=== PATIENT | male | born 2000 | race Hispanic/Latino ===

== ENCOUNTER 2023-10-20 18:12 | Emergency (ER) | payer SELFPAY ==
[2023-10-20] MEDS ORDERED: KETOROLAC 30 MG/ML INJ ONE (18:36)
--- NOTE | 2023-10-20 19:54 | RAD REPORT ---
EXAM DESCRIPTION: RAD - Foot Left 3 View - 10/20/2023 7:46 pm CLINICAL HISTORY: Left Foot pain FINDINGS: No fracture or dislocation is seen.
--- NOTE | 2023-10-20 19:59 | EDPHYS ---
Physician Documentation [facility] Name: Ruben Giraldo Age: 22 yrs Sex: Male : 2000 Arrival Date: 10/20/2023 Time: 18:12 Bed 9 Private MD: ED Physician Lloyd Han HPI: 10/19 19:55 This 22 yrs old Male presents to ER via Wheelchair with complaints of Foot kb Pain. 19:55 Pt is a 22 year old male who presents for left foot pain and swelling that started this kb morning. Denies injury or trauma. States he has a history of gout but this feels different and is to the top of his foot, not a joint. Denies redness, fever. Historical: - Allergies: 18:29 No Known Allergies; ap3 - PMHx: 18:29 Gout; ap3 - Immunization history:: Client reports receiving the 2nd dose of the Covid vaccine. - Infectious Disease History:: Denies. - Social history:: Smoking status: Patient reports the use of cigarette tobacco products, denies chronic smoking, but will smoke occasionally. ROS: 19:55 Constitutional: As per HPI kb Exam: 19:55 Constitutional: This is a well developed, well nourished patient who is awake, alert, kb and in no acute distress. Head/Face: Normocephalic, atraumatic. ENT: Moist Mucous membranes Cardiovascular: Regular rate Respiratory: Respirations even and unlabored. No increased work of breathing. Talking in full sentences Skin: Warm, dry with normal turgor. Normal color. Neuro: Awake and alert, GCS 15, oriented to person, place, time, and situation. Moves all extremities. Normal gait. 19:55 Musculoskeletal/extremity: Extremities: grossly normal except: noted in the lateral side of left foot and dorsum of left foot: pain, swelling, tenderness, ROM: intact in all extremities, Circulation is intact in all extremities. Sensation intact. Weight bearing: can bear weight with assistance only, Vital Signs: 18:28 BP 121 / 51; Pulse 74; Resp 18; Temp 98; Pulse Ox 98% ; Weight 124.74 kg; Height 6 ft. ap3 2 in. ; Pain 9/10; 20:19 BP 122 / 78; Pulse 75; Resp 19; Temp 98.4; Pulse Ox 99% on R/A; Pain 3/10; tm6 18:28 Body Mass Index 35.31 (124.74 kg, 187.96 cm) ap3 18:28 Pain Scale: Adult ap3 20:19 Pain Scale: Adult tm6 MDM: 18:21 Patient medically screened. kb 19:57 Differential diagnosis: closed fracture, strain, sprain. Data reviewed: vital signs, kb nurses notes. Counseling: I had a detailed discussion with the patient and/or guardian regarding the historical points, exam findings, and any diagnostic results supporting the discharge/admit diagnosis, radiology results, the need for outpatient follow up, a family practitioner, to return to the emergency department if symptoms worsen or persist or if there are any questions or concerns that arise at home. 10/19 18:29 Order name: Foot Left 3 View XRAY; Complete Time: 19:55 kb Administered Medications: 18:42 Drug: Ketorolac IM 30 mg IM once Route: IM; Site: left deltoid; ap3 Disposition Summary: 10/20/23 19:58 Discharge Ordered Notes: Location: Home kb Condition: Stable kb Diagnosis - Pain in left foot kb Followup: kb - With: Emergency Department - When: As needed - Reason: Worsening of condition Followup: kb - With: Private Physician - When: 2 - 3 days - Reason: Recheck today's complaints, Continuance of care, Re-evaluation by your physician Discharge Instructions: - Discharge Summary Sheet kb - Musculoskeletal Pain kb - Foot Pain kb Forms: - Medication Reconciliation Form kb - Antibiotic Education kb - Prescription Opioid Use kb - Patient Portal Instructions kb - Leadership Thank You Letter kb Prescriptions: - Diclofenac Sodium 75 mg Oral tablet, delayed release (enteric coated) - take 1 tablet ORAL route 2 times per day As needed; 30 tablet; Refills: 0, kb Product Selection Permitted Signatures: Dispatcher [employer] Lisy Dubois, Manda Null RN RN ap3
--- NOTE | 2023-10-20 19:59 | ER ---
Nurse's Notes [facility] Name: Ruben Giraldo Age: 22 yrs Sex: Male : 2000 Arrival Date: 10/20/2023 Time: 18:12 Bed 9 Private MD: Diagnosis: Pain in left foot Presentation: 10/19 18:28 Chief complaint: Patient states: he woke up this morning with left lateral foot pain. ap3 patient currently rates his pain as as 9/10 on the pain scale. Coronavirus screen: At this time, the client does not indicate any symptoms associated with coronavirus-19. Ebola Screen: No symptoms or risks identified at this time. Initial Sepsis Screen: Does the patient meet any 2 criteria? No. Patient's initial sepsis screen is negative. Does the patient have a suspected source of infection? No. Patient's initial sepsis screen is negative. Risk Assessment: Do you want to hurt yourself or someone else? Patient reports no desire to harm self or others. Onset of symptoms was October 20, 2023. 18:28 Method Of Arrival: Wheelchair ap3 18:28 Acuity: ILA 4 ap3 Triage Assessment: 18:30 General: Appears uncomfortable, Behavior is calm, cooperative, appropriate for age. ap3 Pain: Complains of pain in lateral side of left foot Pain currently is 9 out of 10 on a pain scale. Pain began this morning. Neuro: Level of Consciousness is awake, alert, obeys commands, Oriented to person, place, time, situation, Appropriate for age. Cardiovascular: Patient's skin is warm and dry. Respiratory: Airway is patent Respiratory effort is even, unlabored, Respiratory pattern is regular, symmetrical. Historical: - Allergies: 18:29 No Known Allergies; ap3 - PMHx: 18:29 Gout; ap3 - Immunization history:: Client reports receiving the 2nd dose of the Covid vaccine. - Infectious Disease History:: Denies. - Social history:: Smoking status: Patient reports the use of cigarette tobacco products, denies chronic smoking, but will smoke occasionally. Screenin:30 Abuse screen: Denies threats or abuse. Nutritional screening: No deficits noted. ap3 Tuberculosis screening: No symptoms or risk factors identified. 20:19 [facility] ED Fall Risk Assessment (Adult) History of falling in the last 3 months, tm6 including since admission No falls in past 3 months (0 pts) Confusion or Disorientation No (0 pts) Intoxicated or Sedated No (0 pts) Impaired Gait No (0 pts) Mobility Assist Device Used No (0 pt) Altered Elimination No (0 pt) Score/Fall Risk Level 0 - 2 = Low Risk Oriented to surroundings, Maintained a safe environment. Assessment: 20:19 General: Appears in no apparent distress. Behavior is calm, cooperative. Pain: tm6 Complains of pain in left foot Pain currently is 3 out of 10 on a pain scale. Neuro: Level of Consciousness is awake, alert, obeys commands, Oriented to person, place, time, situation, Bobbin Winder Tender are. Cardiovascular: No deficits noted. Patient's skin is warm and dry. Respiratory: Airway is patent Respiratory effort is even, unlabored, Respiratory pattern is regular, symmetrical. GI: No signs and/or symptoms were reported involving the gastrointestinal system. : No signs and/or symptoms were reported regarding the genitourinary system. EENT: Derm: No signs and/or symptoms reported regarding the dermatologic system. Musculoskeletal: Reports pain in left foot Pain is 4 out of 10 on a pain scale. Vital Signs: 18:28 BP 121 / 51; Pulse 74; Resp 18; Temp 98; Pulse Ox 98% ; Weight 124.74 kg; Height 6 ft. ap3 2 in. ; Pain 9/10; 20:19 BP 122 / 78; Pulse 75; Resp 19; Temp 98.4; Pulse Ox 99% on R/A; Pain 3/10; tm6 18:28 Body Mass Index 35.31 (124.74 kg, 187.96 cm) ap3 18:28 Pain Scale: Adult ap3 20:19 Pain Scale: Adult tm6 ED Course: 18:18 Patient arrived in ED. im 18:21 Lisy Quinn FNP-C is PHCP. kb 18:21 Lloyd Han MD is Attending Physician. kb 18:29 Triage completed. ap3 18:31 Arm band placed on right wrist. ap3 18:31 Patient has correct armband on for positive identification. Bed in low position. Call ap3 light in reach. Side rails up X 1. Pulse ox on. NIBP on. 18:31 Provided Education on: call light use. ap3 19:17 Manda Shepard, RN is Primary Nurse. ap3 19:17 Report given to KASANDRA Neal. ap3 19:45 Foot Left 3 View XRAY In Process Unspecified. EDMS 20:19 No provider procedures requiring assistance completed. Patient did not have IV access tm6 during this emergency room visit. Administered Medications: 18:42 Drug: Ketorolac IM 30 mg IM once Route: IM; Site: left deltoid; ap3 Medication: 18:31 VIS not applicable for this client. ap3 Outcome: 19:58 Discharge ordered by . hilary 20:19 Discharged to home via wheelchair, tm6 20:19 Condition: stable 20:19 Discharge instructions given to patient, Instructed on discharge instructions, follow up and referral plans. medication usage, Demonstrated understanding of instructions, follow-up care, medications, Prescriptions given X 1, 20:22 Patient left the ED. tm6 Signatures: Dispatcher [employer] EDMS Lisy Quinn, REMBERTO POLK-Manda Tejada RN RN ap3 Diana España Tawney, RN RN tm6
[2023-10-20 20:52] VITALS: BP 122/78; TEMP 98.4; O2SAT 99
== END 2023-10-20 20:22 | disposition home or self-care (01) ==
LOC: ER 18:12
DX: M79.672 Pain in left foot (principal)

== ENCOUNTER 2023-11-04 00:54 | Emergency (ER) | payer SELFPAY, OTHER ==
--- OUTSIDE RECORDS SUMMARY | 2023-11-04 00:57 | XMS REPORT | Continuity of Care Document ---
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 Date/Time/By: 06/21/2022 (0009) :KeelyTH15 Orig Print D/T:S: 06/21/2022 (0012) Automated exposure control, iterative reconstruction technique, and/oradjustment of mA and/or kV according to patient's size was utilizedfor optimum radiation dose reduction. PAGE 1 Signed Report Notes Date/Time Note Provider Source 2023-07-13 14:24:00 [id number]/[id number]M85:24:00 [facility] PROVIDER REPORTREPORT#:[id number] REPORT STATUS: SignedDATE:07/13/23 TIME: 1423 PATIENT: SURINDER WEEKS UNIT #: [id number]#: [id number] ROOM/BED:AGE: 22 SEX: M PCP PHYS: No Primary or Family PhysicianSERVICE AUTHOR: Kanchan Marshall RN PHYSICIAN OFFICE * ALL edits or amendments must be made on the electronic/computer document * Kanchan Marshall 07/13/23 1424:XTU-Xdb-[facility] Illness Free Text HPI NotesFree Text HPI NotesWell-appearing alert orientated male greeted in ER lobby with spouse is being seen for same symptoms. Patient complains of cough congestion sinus pressure fever chills headache and sweating. Patient states symptoms all started midmorning today approximately 6 hours ago. Patient's spouse has been sick since yesterday. GeneralConfirmed Patient YesPatient Type New patientInitial Greet Date/Time 07/13/23 1409 PresentationChief Complaint Body aches, Chills, Cough, Fatigue, Fever, Nasal congestion, Upper resp infectionHx Obtained From PatientOnset Occurred Sudden, TodayContext of Onset Known contact, family Review of Systems ROS StatementsAll systems rev neg except as marked. Focused Review of SystemsConstitutionalReports: Chills, Fatigue, Fever, Malaise. Ears/Nose/ThroatReports: Nasal congestion, Sinus problem. RespiratoryReports: Cough, non-productive. GIReports: Nausea. MusculoskeletalReports: Myalgia. NeurologicReports: Headache. Past Medical History - AdultStated Complaint RNERWE-SSEZVTN-SUKVF-COUGHAllergiesCoded Allergies:No Known Allergies (07/13/23) Review of Nursing Notes Triage notes reviewedSmoking status for patients 13 years old or older: Current every day smoker Physical Exam Vital SignsReview of Vital Signs Reviewed Basic Physical ExamBasic PE HEAD: Atraumatic/NC, EYES: PERRL, conj clear, ENT: Membranes moist, ABD: Soft/non-tender, EXT: No gross abnormality, PSYCH: NL thought content Focused PEGeneral/Const General/Const Awake, Alert, No acute distress, Cooperative, Not toxic appearing Appearance/Presentation Ill appearing/not toxic. MS Neck Neck Supple, No meningismus, Full range of motion, No adenopathyResp/Chest Respiratory/Chest Breath sounds NL, Breath sounds = bilat, No respiratory distressCardiovascular Cardiovascular Regular rhythm, Cap refill not delayed, Peripheral circulationNL Heart Rate/Rhythm Tachycardia. Skin Skin Warm, DryNeurologic Neurologic Oriented X3, Speech NL, Cerebellar NL, Memory NL, Gait NL Interpretation Diagnostics Lab Results Interpretation Lab StatementLaboratory studies reviewed and considered in the medical decision-making. Patient Discharge Departure Vital Signs/ConditionVital SignsFirst Documented: Result Date Time Pulse Ox 96 07/13 1413 B/P 137/82 / 1413 B/P Mean 100 / 1413 O2 Delivery Room air 07/13 1413 Temp 38.2 02 1413 Pulse 116 02/ 1413 Resp 18 02/ 1413 Last Documented: Result Date Time Pulse Ox 96 / 1413 B/P 137/82 02/ 1413 B/P Mean 100 / 1413 O2 Delivery Room air 07/13 1413 Temp 38.2 02/ 1413 Pulse 116 02/ 1413 Resp 18 / 1413 All vital signs available at the time of this entry have been reviewed. Condition Stable Clinical ImpressionClinical ImpressionPrimary Impression: COVID-19 Disposition DecisionDischarge )( Discharged to Home Yes )( Time 1453 )( Date 07/13/23 Discharge/Care PlanCounseled Regarding Diagnosis, Lab results, Prescriptions, Need for follow-up, When to return to ED(Auto) PrescriptionsCurrent Visit ScriptsALBUTEROL (PROVENTIL HFA 90 MCG/ACT 6.7 GM) 2 PUFF INH RTQ4H PRN PRN COUGH/WHEEZE/SOB ALBUTEROL (PROVENTIL HFA 90 MCG/ACT 6.7 GM) 2 PUFF INH RTQ4H PRN PRN COUGH/WHEEZE/SOB #6.7 GM FLUTICASONE PROPIONATE (FLONASE 50 MCG/ACT NASAL) 2 SPRAY NASAL DAILY FLUTICASONE PROPIONATE (FLONASE 50 MCG/ACT NASAL) 2 SPRAY NASAL DAILY #16 GM guaiFENesin ER (MUCINEX) 1,200 MG PO Q12H guaiFENesin ER (MUCINEX) 1,200 MG PO Q12H #20 TABS TAKE EARLY AM AND EARLY AFTERNOON DME - SPACER (SPACER) EACH MISC ASDIR DME - SPACER (SPACER) EACH [facility] Spacer of choice Prescriptions Reviewed Risks, Benefits, Alternative treatmentPatient Instructions COVID-19 Aftercare, COVID-19 Home Care, COVID-19: How to Clean Your Hands - Video, V-Symptoms of COVID-19 InfectionAdditional InstructionsYour oxygen levels are normal, you are not struggling to breathe, your lungs areclear on exam. There are no emergent findings based off today's visit. If positive please quarantine for the full 5 days and for 24 hours after fever. You may return to work after being fever free for 24 hours without medication. Rest, stay well-hydrated, wash your hands frequently and stay away from others who may be susceptible to the virus. Use Tylenol as indicated to control fever and body aches. You may take tjhw-qcw-nkeuiyz magnesium, vitamin C, zinc, and or melatonin as indicated to help with symptoms as well.Flonase is an intranasal steroid that works to help relieve inflammation and irritation of the nasal cavity and promote drainage and allow the congestion to leave your head will also help with sore throat and inflammation in the upper airway as well.Sinus pressure can help be relieved by eyedrops such as Opcon-A, use of [place] Conrad or warm compresses to the face, and blowing her nose when congested. It is most important that you do not just lay in bed, make sure that you are getting up and walking for at least 15 minutes every 1-2 hours. When sleeping try to lay on your stomach rather than your back. Make sure you are drinking plenty of water! Take medications as prescribed.Take every day precautions to protect others while sick: Limit contact with others as much as possible to keep from infecting them. Cover your nose and mouth with a tissue when you cough or sneeze. Throw the tissue in the trash after you use it.Wash your hands with soap and water often. If soap and water are not available use an alcohol-based hand export sales assistant.Clean and disinfect surfaces and objects that may be contaminated with germs.Stay home until you are better. The CDC currently recommends quarantine for 5 days from the first day of symptoms and 24 hours fever-free before you return to work.Departure FormsWORK/SCHOOL EXCUSE VARIABLE Discharge NoteI have spoken with the patient and/or caregivers. I have explained the patient'scondition, diagnoses and treatment plan based on the information available to meat this time. I have answered the patient's and/or caregiver's questions and addressed any concerns. The patient and/or caregivers have as good an understanding of the patient's diagnosis, condition and treatment plan as can beexpected at this point. The vital signs have been stable. The patient's condition is stable and appropriate for discharge from the emergency department. The patient will pursue further outpatient evaluation with the primary care physician or other designated or consulting physician as outlined in the discharge instructions. The patient and/or caregivers are agreeable to this planof care and follow-up instructions have been explained in detail. The patient and/or caregivers have received these instructions in written format and have expressed an understanding of the discharge instructions. The patient and/or caregivers are aware that any significant change in condition or worsening of symptoms should prompt an immediate return to this or the closest emergency department or a call to 911. Dannielle Win 07/13/23 1450:Physical Exam Vital SignsVital SignsFirst Documented: Result Date Time Pulse Ox 96 07/13 1413 B/P 137/82 07/13 1413 B/P Mean 100 07/13 1413 O2 Delivery Room air 07/13 141 Temp 100.7 07/13 1413 Pulse 116 07/13 1413 Resp 18 07/13 1413 Last Documented: Result Date Time Pulse Ox 96 07/13 1413 B/P 137/82 07/13 1413 B/P Mean 100 07/13 1413 O2 Delivery Room air 07/13 1413 Temp 100.7 07/13 1413 Pulse 116 07/13 1413 Resp 18 07/13 1413 Interpretation Diagnostics Lab Results InterpretationResultsLaboratory Tests: 07/13 142 Serology SARS-CoV-2 Ag (Rapid) (Negative) POSITIVE A Microbiology: Date/Time Procedure - Status Source Growth 07/13 142 Group A Streptococcus Screen (BRIGITTE) - RES THROAT 07/13 142 Throat Culture - RES THROAT 07/13 142 Influenza Virus Type B Antigen - COMP NASOPHARG 07/13 142 Influenza Virus Type A Antigen - COMP NASOPHARG 07/13 141 Blood Culture - CAN BLOOD Cancelled: Cancelled via OE: Physician Decision 07/13 141 Blood Culture - CAN BLOOD Cancelled: Cancelled via OE: Physician Decision Re-Evaluation [facility] ED CourseMedication(s) OrderedMedication(s) Ordered:Electrolytic, Caloric, And Tacos Sig/Elise Start time Last Medication Dose Route Stop Time Status Admin Sodium Chloride 1,000 ML X1ED STA 07/13 1415 CAN IV 07/13 1514 Gastrointestinal Drugs Sig/Elise Start time Last Medication Dose Route Stop Time Status Admin Ondansetron Base 4 MG X1ED STA 07/13 1421 DC 07/13 SL 07/13 1422 1424 Patient Discharge Departure Supervising Physician Note MidLv Saw Pt AloneI have reviewed the PA/RN PHYSICIAN OFFICE's note and plan of care. I was available for consultation as needed at all times during the patient's visit in the emergency department. at 1750 at 0816RPT #:[id number] OF REPORTEDEmergency department mopjlm0209-19-62Y94:24:00D.[id number] ilable for patient qkijQOBCQUREQOQIDG7999-60-97M96:51:16 [facility] 2023-06-10 15:40:00 [id number]+6VeObKQDVxWtDBr kcw6DR+3DSO1U/gDuNOAZgYee3C2766-05-43D97:40:00 [facility] PROVIDER REPORTREPORT#:[id number] REPORT STATUS: SignedDATE:06/10/23 TIME: 1540 PATIENT: SURINDER WEEKS UNIT #: [id number]#: [id number] ROOM/BED:AGE: 22 SEX: M PCP PHYS: Elsie Spence MDSERVICE AUTHOR: Marco Navarrete RN PHYSICIAN OFFICE * ALL edits or amendments must be made on the electronic/computer document * See AddendumMarco Navarrete 06/10/23 1540:HPI-Foot Prob/Inj Free Text HPI NotesFree Text HPI NotesPatient complaining of pain to middle arch of left foot for 2 days. States may have started when he stepped on a bar with the middle of his foot. Pain worse when walking or stretching foot. No acute trauma. GeneralConfirmed Patient YesInitial Greet Date/Time 06/10/23 1538 PresentationChief Complaint Foot pain LLocation: Left Foot Plantar surfacePain/Sev: Current Pain level 5 out of 10 Review of Systems Free Text ROS NotesFree Text ROS NotesCONSTITUTIONAL: No fever, fatigue or weight loss.SKIN: No rash.HENT: No congestion, ear pain, or sore throat.EYES: No recent vision problems or eye pain.CARDIOVASCULAR: No chest pain or edema.RESPIRATORY: No cough, shortness of breath, or wheezing.GASTROINTESTINAL: No abdominal pain, nausea, vomiting, bloody stools or diarrhea.GENITOURINARY: No dysuria.MUSCULOSKELETAL: Left foot painNEUROLOGIC: No seizures. No headache, focal weakness or sensory changes.HEMATOLOGIC: No unusual bruising or bleeding.PSYCHIATRIC: No depression or anxiety. Past Medical History - AdultStated Complaint FOOT PAINAllergiesCoded Allergies:No Known Allergies (06/10/23) Physical Exam Vital SignsVital SignsFirst Documented: Result Date Time Pulse Ox 97 06/10 1537 B/P 150/87 06/10 1537 B/P Mean 108 06/10 1537 O2 Delivery Room air 06/10 1537 Temp 36.4 06/10 1537 Pulse 97 06/10 1537 Resp 16 06/10 1537 Last Documented: Result Date Time Pulse Ox 97 06/10 1537 B/P 150/87 06/10 1537 B/P Mean 108 06/10 1537 O2 Delivery Room air 06/10 1537 Temp 36.4 06/10 1537 Pulse 97 06/10 1537 Resp 16 06/10 153 Review of Vital Signs Reviewed Basic Physical ExamBasic PE GEN: Well appearing/NAD, HEAD: Atraumatic/NC, EYES: PERRL, conj clear, ENT: Membranes moist, NECK: Supple, RESP: No resp distress, CV: Reg rate rhythm, ABD: Soft/non-tender, UP EXT: No gross abnormal, SKIN: No rashes, warm/dry, NEURO: alert oriented, NEURO: gross movement NL, PSYCH: NL thought content Focused PEMS Ankle/Foot Ankle/Foot Atraumatic, Inspection NL, Full range of motion, No swelling, No erythema Left Ankle Tenderness present (PLANTAR FASCIA). Re-Evaluation MDM Free Text MDM NotesFree Text MDM NotesPatient presents with relatively straightforward plantar fasciitis. Will treat with ibuprofen for inflammation and pain relief. Discussed need for stretching exercises and follow-up with case liner if symptoms do not resolve. Directed toreturn to the emergency room for new or worsening symptoms. Patient Discharge Departure Vital Signs/ConditionVital SignsFirst Documented: Result Date Time Pulse Ox 97 06/10 1537 B/P 150/87 06/10 1537 B/P Mean 108 06/10 1537 O2 Delivery Room air 06/10 1537 Temp 36.4 06/10 153 Pulse 97 06/10 1537 Resp 16 06/10 1537 Last Documented: Result Date Time Pulse Ox 97 06/10 1537 B/P 150/87 06/10 1537 B/P Mean 108 06/10 1537 O2 Delivery Room air 06/10 1537 Temp 36.4 06/10 1537 Pulse 97 06/10 1537 Resp 16 06/10 1537 All vital signs available at the time of this entry have been reviewed. Condition Stable Clinical ImpressionClinical ImpressionPrimary Impression: Plantar fasciitis Disposition DecisionDischarge )( Discharged to Home Yes )( Time 1544 )( Date 06/10/23 Discharge/Care PlanCounseled Regarding Diagnosis, Prescriptions, Need for follow-up, When to returnto ED(Auto) PrescriptionsCurrent Visit ScriptsIBUPROFEN (MOTRIN) 800 MG PO TID IBUPROFEN (MOTRIN) 800 MG PO TID #30 TABS Prescriptions Reviewed Risks, Benefits, Alternative treatmentPatient Instructions ED Plantar Fasciitis Discharge NoteI have spoken with the patient and/or caregivers. I have explained the patient'scondition, diagnoses and treatment plan based on the information available to meat this time. I have answered the patient's and/or caregiver's questions and addressed any concerns. The patient and/or caregivers have as good an understanding of the patient's diagnosis, condition and treatment plan as can beexpected at this point. The vital signs have been stable. The patient's condition is stable and appropriate for discharge from the emergency department. The patient will pursue further outpatient evaluation with the primary care physician or other designated or consulting physician as outlined in the discharge instructions. The patient and/or caregivers are agreeable to this planof care and follow-up instructions have been explained in detail. The patient and/or caregivers have received these instructions in written format and have expressed an understanding of the discharge instructions. The patient and/or caregivers are aware that any significant change in condition or worsening of symptoms should prompt an immediate return to this or the closest emergency department or a call to 911. Robbie García 06/15/23 1242:Patient Discharge Departure Supervising Physician Note MidLv Saw Pt AlonePatient was seen, evalauted, +/- treated in the ED, and disposed by LELO independently. I was present and available for consultation during the entire stay of patient in this ED. I was not consulted on this particular patient. at 1545 at 1244 Addendum 1: 06/10/23 154 by Marco Navarrete NP Provider Time Updates Greet Date/TimeDate/Time Seen by Provider 06/10/23 1538 DispositionDischarge )( Discharged to Home Yes )( Time 1547 )( Date 06/10/23 at 1547 at 1244RPT #:[id number] OF REPORTEDEmergency department tyebzv3070-00-51U57:40:00D.[id number] ilable for patient rkysZAEPHPSJVANSNC9602-57-33Y65:45:57 [facility] 2022-08-08 08:03:00 [id number]/ PMCQeRntsIhyQpYVBHaC7i4KJyFaH LkVZ4YReAy+Yifiqf9uZLHzQIuP4584-91-02A85:03:00 [facility] ([facility])EMERGENCY PROVIDER REPORTREPORT#:[id number] REPORT STATUS: SignedDATE:08/08/22 TIME: 0803 PATIENT: SURINDER WEEKS UNIT #: [id number]#: [id number] ROOM/BED:AGE: 21 SEX: M PCP PHYS: No Primary or Family PhysicianSERVICE AUTHOR: Sara Ellis RN PHYSICIAN OFFICE * ALL edits or amendments must be made on the electronic/computer document * Sara Ellis 08/08/22 0803:HPI-Foot Prob/Inj Free Text HPI NotesFree Text HPI NotesPatient is a 22-year-old male, who denies any medical history, who comes to the ER complaining of right toe swelling and pain. Patient stated that 2 weeks ago he hit his toe with a pallet of clothes. But no pain or swelling at that time. This morning he says that he tried to walk and noticed that he was very swollen,red, he states pain is 10/10. Patient stated that 2 months ago he had similar symptoms and they told him that he might be gout. GeneralConfirmed Patient YesPatient Type New patientInitial Greet Date/Time 08/08/22 0747 PresentationChief Complaint Toe pain R, Toe swelling RHx Obtained From Patient Review of Systems Focused Review of SystemsConstitutionalReports: Malaise. Denies: Chills, Fatigue, Fever, Lethargy, Recent wt loss, Weakness - generalized. MusculoskeletalReports: Joint pain, Joint swelling. SkinReports: Erythema, Swelling. Past Medical History - AdultStated Complaint RT BIG TOE PAINAllergiesCoded Allergies:No Known Allergies (08/05/22) Home MedicationsActive ScriptsCOLCHICINE (COLCRYS) 0.6 MG PO BID COLCHICINE (COLCRYS) 0.6 MG PO BID #6 TABS Prov: 08/05/22IBUPROFEN (MOTRIN) 800 MG PO TID PRN PRN PAIN IBUPROFEN (MOTRIN) 800 MG PO TID PRN PRN PAIN #30 TABS Prov: 07/27/22diphenhydrAMINE (BENADRYL) 25 MG PO Q4H PRN PRN rash/allery Pt reports no significant: Past medical history, Past surgical history, Family history, Social historySmoking status for patients 13 years old or older: Current some day smoker Physical Exam Vital SignsVital SignsFirst Documented: Result Date Time Pulse Ox 100 08/08 0741 Temp 36.9 08/08 0741 Pulse 99 / 0741 Resp 18 08/08 0741 B/P 135/84 / 0804 B/P Mean 101 / 0804 O2 Delivery Room air 08/08 0940 Last Documented: Result Date Time Pulse Ox 99 08/08 0940 B/P 125/79 / 0940 B/P Mean 94 / 0940 O2 Delivery Room air 08/08 0940 Temp 36.9 / 0940 Pulse 89 / 0940 Resp 18 08/08 0940 Review of Vital Signs Reviewed Focused PEGeneral/Const General/Const Awake, Alert, No acute distress, Cooperative Appearance/Presentation In pain. MS Ankle/Foot Right Great Toe Positive: Swelling present, Tenderness present, Erythema present. Skin Skin Color NL, No rash, Warm, Dry, IntactNeurologic Neurologic Oriented X3, Speech NL, No motor deficits, No sensory deficits, CNII - XII intact Interpretation Diagnostics Lab Results InterpretationResultsRecent Impressions:RADIOLOGY - XR TOE(S) 2+V RT 08/08 08 Report Impression - Status: SIGNED Entered: 08/08/2022 0857 Impression: No plain film evidence of acute fracture or dislocationImpression By: KeelySR31 - FRANKLYN LAL M.D. Re-Evaluation MDM Re-Evaluation/ProgressRe-Evaluation/Progress Text/Dict NotePatient is feeling better, pain subside, swelling still present, I explained this is probably a gout attack, I recommended to follow-up with PCP. ER returning symptom explained. Time of Re-Eval 09 Re-Eval Status Improved Eval Following Treatment Pt. feels better Compartment SyndromeThere are no signs or symptoms of compartment syndrome in the injured extremity at the time of this examination. Any pain the patient has is in proportion to the injury, the peripheral circulation is intact, capillary refill is not delayed, and there is no numbness, tingling or paresthesia. ED CourseMedication(s) OrderedMedication(s) Ordered:Central Nervous System Agents Sig/Elise Start time Last Medication Dose Route Stop Time Status Admin Ketorolac 60 MG X1ED STA 08/08 0810 DC 08/08 Tromethamine IM 08/08 0811 0824 Gastrointestinal Drugs Sig/Elise Start time Last Medication Dose Route Stop Time Status Admin Ondansetron Base 4 MG X1ED STA 08/08 0924 DC PO 08/08 0925 Hormones And Synthetic Substit Sig/Elise Start time Last Medication Dose Route Stop Time Status Admin Methylprednisolone 125 MG X1ED STA 08/08 0812 DC / Sodium Succinate IM 08/08 0813 0824 Miscellaneous Therapeutic Agen Sig/Elise Start time Last Medication Dose Route Stop Time Status Admin Colchicine 0.6 MG X1ED STA 08/08 0900 DC PO 08/08 0901 Colchicine 0.6 MG X1ED STA 08/08 0811 DC / PO 08/08 0812 0909 Patient Discharge Departure Vital Signs/ConditionVital SignsFirst Documented: Result Date Time Pulse Ox 100 / 0741 Temp 36.9 / 0741 Pulse 99 / 0741 Resp 18 08/08 0741 B/P 135/84 / 0804 B/P Mean 101 / 0804 O2 Delivery Room air 08/08 0940 Last Documented: Result Date Time Pulse Ox 99 / 0940 B/P 125/79 08/08 0940 B/P Mean 94 08/08 0940 O2 Delivery Room air 08/08 0840 Temp 36.9 08/08 0940 Pulse 89 08/08 0940 Resp 18 08/08 0940 All vital signs available at the time of this entry have been reviewed. Condition Stable, Improved Clinical ImpressionClinical ImpressionPrimary Impression: Gout attackSecondary Impressions: Localized swelling of toe of right foot, Toe pain, right Disposition DecisionDischarge )( Discharged to Home Yes )( Time 09 )( Date 08/08/22 Discharge/Care PlanCounseled Regarding Diagnosis, Imaging studies, Need for follow-up, When to return to ED(Auto) PrescriptionsCurrent Visit ScriptsKETOROLAC (TORADOL) 10 MG PO Q6H PRN PRN PAIN KETOROLAC (TORADOL) 10 MG PO Q6H PRN PRN PAIN #20 TABS methylPREDNISolone (MEDROL 4 MG DOSEPAK) 4 MG PO ASDIR methylPREDNISolone (MEDROL 4 MG DOSEPAK) 4 MG PO ASDIR #1 PACKET Prescriptions Reviewed Risks, BenefitsPatient Instructions ED Gout, ED Gout Diet, What Is GoutAdditional InstructionsFollow up with primary care doctor Discharge NoteI have spoken with the patient and/or caregivers. I have explained the patient'scondition, diagnoses and treatment plan based on the information available to meat this time. I have answered the patient's and/or caregiver's questions and addressed any concerns. The patient and/or caregivers have as good an understanding of the patient's diagnosis, condition and treatment plan as can beexpected at this point. The vital signs have been stable. The patient's condition is stable and appropriate for discharge from the emergency department. The patient will pursue further outpatient evaluation with the primary care physician or other designated or consulting physician as outlined in the discharge instructions. The patient and/or caregivers are agreeable to this planof care and follow-up instructions have been explained in detail. The patient and/or caregivers have received these instructions in written format and have expressed an understanding of the discharge instructions. The patient and/or caregivers are aware that any significant change in condition or worsening of symptoms should prompt an immediate return to this or the closest emergency department or a call to 911. Extremity Inj Discharge NoteThe patient is discharged home with supportive care, a plan for pain control, and follow-up instructions that detail what to expect over the next 48 hours andwhat symptoms should prompt immediate return to the ED, including the symptoms of compartment syndrome. Follow-up instructions have been explained in detail tothe patient, and the instructions have been provided in written format. The patient is comfortable with the plan of care and has expressed an understanding of the discharge instructions. The patient is aware that any significant change in condition or worsening of symptoms should prompt an immediate call to the primary or designated physician. If that is not successful the patient should call or return to this or the closest emergency department or call 911. Valente Levin 08/14/22 0725:Patient Discharge Departure Supervising Physician Note MidLv Saw Pt AloneI have reviewed the PA/RN PHYSICIAN OFFICE's note and plan of care. I was available for consultation as needed at all times during the patient's visit in the emergency department. I agree with the clinical impression, plan and disposition. at 1418 at 0726RPT #:[id number] OF REPORTEDSkagit [facility] department pbtrln7510-90-09H49:03:00VR.[id number] ailable for patient tjtbNPMFOOQAUAGMKP6840-17-42P60:18:59 [facility] 18:24:00 [id number] q/rXaqi/utVOxcKUk8c5Cl6TRXwWi MaEqQV5DFSIk00BSLwdJbi41lbK8845-75-63M17:24:00 [facility] ([facility])EMERGENCY PROVIDER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 rashes, warm/dry, NEURO: alert oriented, NEURO: gross movement NL, PSYCH: NL thought content Focused PEGeneral/Const General/Const Awake, Alert, No acute distress, Well appearing, Well developed, Well hydrated, Well nourished, Cooperative, Not toxic appearingResp/Chest Respiratory/Chest Atraumatic, Breath sounds NL, Breath sounds = bilat, No respiratory distress, No rales, No rhonchi, No wheezing, No retractionsCardiovascular Cardiovascular Heart rate NL, Regular rhythm, Heart sounds NL, No gallop, No murmurs, No rubs, Cap refill not delayed, Peripheral circulation NL Interpretation Diagnostics Lab Results InterpretationResultsLaboratory Tests 06/21/22 003:[Embedded Image Not Available]Laboratory Tests: 06/21 31 Chemistry Sodium (136 - 145 mmol/L) 140 Potassium (3.5 - 5.1 mmol/L) 3.6 Chloride (98 - 113 mmol/L) 108 Carbon Dioxide (21 - 32 mmol/L) 28 BUN (7 - 18 mg/dL) 15 Creatinine (0.6 - 1.0 mg/dL) 1.2 H Glomerular Filtr Rate 88 Glucose (65 - 99 mg/dL) 126 H Calcium (7.8 - 10.9 mg/dL) 8.4 Total Bilirubin (0.0 - 1.1 mg/dL) 0.6 AST (15 - 37 U/L) 19 ALT (10 - 30 U/L) 37 H Total Alk Phosphatase (45 - 117 U/L) 66 Troponin I (3.0 - 78.5 pg/mL) 3.7 Total Protein (6.4 - 8.2 g/dL) 6.7 Albumin (3.4 - 5.0 g/dL) 3.4 Globulin (2.3 - 3.5 gm/dL) 3.3 Albumin/Globulin Ratio (1.5 - 2.2) 1.0 L Hematology WBC (4.8 - 10.8 K/mm3) 8.5 RBC (4.2 - 5.4 M/mm3) 5.25 Hgb (13.5 - 17.5 gm/DL) 14.6 Hct (37.1 - 51.5 %) 43.8 MCV (81 - 99 fL) 83.4 MCH (27 - 31 pg) 27.8 MCHC (33 - 37 gm/dL) 33.3 RDW (11.5 - 14.5 %) 12.9 Plt Count (130 - 400 X10(3)) 304 MPV (9.4 - 12.4 fL) 11.2 Neut % (Auto) (51.5 - 79.7 %) 48.4 L Lymph % (Auto) (14 - 40 %) 39.7 [place] % (Auto) (4.0 - 10.2 %) 8.6 Eos % (Auto) (0 - 4.1 %) 2.6 Baso % (Auto) (0.1 - 0.7 %) 0.5 Neut # (Auto) (2.5 - 8.6 K/mm3) 4.1 Lymph # (Auto) (1.1 - 3.6 K/mm3) 3.4 [place] # (Auto) (0.3 - 0.9 K/mm3) 0.7 Eos # (Auto) (0.0 - 0.4 #) 0.22 Baso # (Auto) (0.0 - 0.2 K/mm3) 0.04 Nucleated RBC % (0 - 0 %) 0.0 Nucleated RBCs # (Man) (0.00 - 0.20 K/mm3) 0.00 Recent Impressions:RADIOLOGY - XR CHEST 1 V 06/20 7 Report Impression - Status: SIGNED Entered: 06/21/2022 001 IMPRESSION: Unremarkable chest radiograph.Impression By: [email or web address] - BRIAN BERNSTEIN M.D. Lab Imaging StatementLaboratory radiographic studies reviewed and considered in the medical decision-making. Re-Evaluation MDM Free Text MDM NotesFree Text MDM NotesPatient resting comfortably in no distress. Patient's labs are unremarkable. Patient vital signs are stable and within normal limits. Patient's x-ray does not show any acute cardiopulmonary process. Educated patient on signs and symptoms to look out for and to return to the ER for any concerns. Discharge instructions provided with return precautions. Patient verbalizes understandingand agrees with discharge plan. Re-Evaluation/Progress #1Eval Following Treatment Pt. feels better, Condition improvedPlan Post Re-Eval Plan discharge Chest Pain MDM NoteThe patient is resting comfortably and feels better, is alert and in no distress. The repeat examination is unremarkable and benign. The electrocardiogram shows no signs of acute ischemia and the history, exam, diagnostic testing and current condition do not suggest that this patient is having an acute myocardial infarction, significant arrhythmia, unstable angina, esophageal perforation, pulmonary embolism, aortic dissection, pneumothorax, severe pneumonia, sepsis or other significant pathology that would warrant further testing, continued ED treatment, admission, or cardiology or other specialist consultation at this point. The vital signs have been stable. The patient's condition is stable and appropriate for discharge. The patient will pursue further outpatient evaluation with the primary care physician, other designated physician or light equipment operator. The patient and/or caregivers have expressed a clear and thorough understanding and agree to follow up as instructed. ED CourseMedication(s) OrderedMedication(s) Ordered:Central Nervous System Agents Sig/Elise Start time Last Medication Dose Route Stop Time Status Admin Ibuprofen 800 MG X1ED STA 06/20 2356 DC 06/21 PO 06/20 2357 0053 Patient Discharge Departure Vital Signs/ConditionVital SignsFirst Documented: Result Date Time Pulse Ox 97 06/20 2356 B/P 147/84 06/20 2356 B/P Mean 105 06/20 2356 O2 Delivery Room air 06/20 2356 Temp 36.6 06/20 2356 Pulse 89 06/20 2356 Resp 06/20 Last Documented: Result Date Time Pulse Ox 98 06/21 133 B/P 128/78 06/21 133 B/P Mean 94 06/21 133 O2 Delivery Room air 06/21 133 Pulse 86 06/21 133 Resp 19 01/15 0134 Temp 36.6 06/20 2357 All vital signs available at the time of this entry have been reviewed. Condition Stable, Improved Clinical ImpressionClinical ImpressionPrimary Impression: Chest pain Disposition DecisionDischarge )( Discharged to Home Yes )( Time 0119 )( Date 06/21/22 Discharge/Care PlanCounseled Regarding Diagnosis, Lab results, Imaging studies, Need for follow-up,When to return to EDPatient Instructions ED Chest Pain, Uncertain Cause Discharge NoteI have spoken with the patient and/or caregivers. I have explained the patient'scondition, diagnoses and treatment plan based on the information available to meat this time. I have answered the patient's and/or caregiver's questions and addressed any concerns. The patient and/or caregivers have as good an understanding of the patient's diagnosis, condition and treatment plan as can beexpected at this point. The vital signs have been stable. The patient's condition is stable and appropriate for discharge from the emergency department. The patient will pursue further outpatient evaluation with the primary care physician or other designated or consulting physician as outlined in the discharge instructions. The patient and/or caregivers are agreeable to this planof care and follow-up instructions have been explained in detail. The patient and/or caregivers have received these instructions in written format and have expressed an understanding of the discharge instructions. The patient and/or caregivers are aware that any significant change in condition or worsening of symptoms should prompt an immediate return to this or the closest emergency department or a call to 911. Zita Kaplan 06/21/22 0749:Patient Discharge Departure Supervising Physician Note MidLv Saw Pt AloneI have reviewed the PA/RN PHYSICIAN OFFICE's note and plan of care. I was available for consultation as needed at all times during the patient's visit in the emergency department. I agree with the clinical impression, plan and disposition. at 0150 at 0749RPT #:[id number] OF REPORTTex[facility] [place] department [id number] ailable for patient [id number] [facility]
[2023-11-04] MEDS ORDERED: ONDANSETRON 4 MG/2 ML VIAL ONE (01:33)
[2023-11-04] MEDS ORDERED: KETOROLAC 30 MG/ML INJ ONE (01:33)
[2023-11-04] MEDS ORDERED: FAMOTIDINE 20 MG/2 ML VIAL IV ONE (01:33)
[2023-11-04] MEDS ORDERED: MORPHINE 4 MG/ML SYR ONE (01:33)
[2023-11-04] MEDS ORDERED: METOCLOPRAMIDE 10 MG/2mL INJ ONE (01:33)
[2023-11-04] MEDS ORDERED: NA CHLORIDE 0.9% 1,000 ML ONE (01:33)
[2023-11-04 02:02] LABS: Absolute Basophils 0.1 K/uL (0-0.5); Absolute Eosinophils 0.4 K/uL (0-0.5); Absolute Monocytes 0.9 K/uL (0.1-1.3); Absolute Neutrophil 4.3 K/uL (1.8-8.0); Basophils % 0.6 % (0-1.3); Eosinophils % 4.9 % (0-4.4); Hematocrit 41.9 % (39.6-49.0); Hemoglobin 14.2 g/dL (13.6-17.9); Lymphocytes % 35.2 % (15.3-44.8); MCH 27.3 pg (27.0-35.0); MCHC 33.8 g/dL (32.0-36.0); MPV 9.8 fL (7.6-11.3); Monocytes % 9.8 % (3.3-12.3); Neutrophils % 49.5 % (41.7-73.7); Nucleated Red Blood Cells % 0.4 % (0-0); Platelets 264 thou/uL (152-406); RBC Red Blood Cell Count 5.18 M/uL (4.33-5.43); Red Cell Distribution Width 13.7 % (12.1-15.2)
[2023-11-04 02:18] LABS: Albumin 3.3 g/dL (3.4-5.0); Albumin/Globulin Ratio 0.9 (1.1-1.8); Anion Gap 6.5 mEq/L (5.0-15.0); Bilirubin Total 0.5 mg/dL (0.2-1.0); Globulin 3.8 g/dL (2.3-3.5); Potassium 3.5 mEq/L (3.5-5.1); Protein, Total 7.1 g/dL (6.4-8.2)
[2023-11-04] MEDS ORDERED: ACETAMINOPHEN 500 MG TAB ONE (03:22)
[2023-11-04 03:23] LABS: Specific Gravity 1.027 (1.005-1.030); Urine Bilirubin NEGATIVE (Negative); Urine Blood Negative (Negative); Urine Clarity Clear (Clear); Urine Color Light-Yellow (Yellow); Urine Glucose NEGATIVE (Negative); Urine Ketones NEGATIVE (Negative); Urine Microscopic Reflex YN NO UMIC; Urine Nitrite NEGATIVE (Negative); Urine Protein NEGATIVE (Negative); Urine Urobilinogen Normal (Normal); Urine pH 6.5 (5.0-7.0)
--- NOTE | 2023-11-04 05:13 | EDPHYS ---
Physician Documentation [facility] Name: Ruben Giraldo Age: 23 yrs Sex: Male : 2000 Arrival Date: 11/04/2023 Time: 00:54 Bed 3 Private MD: ED Physician Dain King HPI: 11/03 01:01 This 23 yrs old Male presents to ER via Unassigned with complaints of Chest sp4 Pain, Vomiting, Headache. 05:48 23-year-old male presents with acute onset of headache, cough, vomiting, chest sp4 discomfort, and also persistent vomiting.. Historical: - Allergies: 01:16 No Known Allergies; jb4 - Home Meds: 01:16 None [Active]; jb4 - PMHx: 01:16 Gout; jb4 01:25 GERD; kl - PSHx: 01:16 None; jb4 - Immunization history:: Adult Immunizations not immunized. - Infectious Disease History:: Denies. - Social history:: Smoking status: unknown. - Family history:: not pertinent. ROS: 05:48 Constitutional: Positive headache, positive vomiting, positive discomfort, positive sp4 chest discomfort, positive feeling unwell 05:48 All other systems are negative, Exam: 05:07 Constitutional: This is a well developed, well nourished patient who is awake, alert, sp4 and in no acute distress. Head/Face: Normocephalic, atraumatic. Eyes: Pupils equal round and reactive to light, extra-ocular motions intact. Lids and lashes normal. Conjunctiva and sclera are not injected. Cornea within normal limits. Periorbital areas with no swelling, redness, or edema. ENT: Nares patent. No nasal discharge, no septal abnormalities noted. Tympanic membranes are normal and external auditory canals are clear. Oropharynx with no redness, swelling, or masses, exudates, or evidence of obstruction, uvula midline. Mucous membranes moist. Neck: Trachea midline, no thyromegaly or masses palpated, and no cervical lymphadenopathy. Supple, full range of motion without nuchal rigidity, or vertebral point tenderness. Chest/axilla: Normal chest wall appearance and motion. Nontender with no deformity. No lesions are appreciated. Cardiovascular: Regular rate and rhythm with a normal S1 and S2. No gallops, murmurs, or rubs. Normal PMI, no JVD. No pulse deficits. Respiratory: Lungs have equal breath sounds bilaterally, clear to auscultation and percussion. No rales, rhonchi or wheezes noted. No increased work of breathing, no retractions or nasal flaring. Abdomen/GI: Soft, with normal bowel sounds. No distension or tympany. No guarding or rebound. No evidence of tenderness throughout. Back: No spinal tenderness. No costovertebral tenderness. Skin: Warm, dry with normal turgor. Normal color with no rashes, no lesions, and no evidence of cellulitis. MS/ Extremity: Pulses equal, no cyanosis. Neurovascular intact. Full, normal range of motion. Neuro: Awake and alert, GCS 15, oriented to person, place, time, and situation. Cranial nerves II-XII grossly intact. Motor strength 5/5 in all extremities. Sensory grossly intact. Psych: Awake, alert, with orientation to person, place and time. Behavior, mood, and affect are within normal limits 05:07 ECG was reviewed by the Attending Physician. EKG at 0 153 normal sinus rhythm at a rate of 89, normal EKG Vital Signs: 01:14 BP 151 / 76; Pulse 101; Resp 18; Temp 97.3; Pulse Ox 100% on R/A; Weight 124.74 kg (R); jb4 Height 6 ft. 2 in. ; Pain 10/10; 02:30 BP 112 / 59; Pulse 83; Resp 17; Pulse Ox 97% ; Pain 3/10; jj7 03:30 BP 107 / 66; Pulse 68; Resp 16 S; Pulse Ox 99% on R/A; jw7 04:30 BP 105 / 78; Pulse 67; Resp 14 S; Pulse Ox 99% on R/A; jw7 05:13 BP 119 / 61; Pulse 61; Resp 15; Temp 98; Pulse Ox 97% ; Pain 0/10; jj7 01:14 Body Mass Index 35.31 (124.74 kg, 187.96 cm) jb4 01:14 Pain Scale: Adult jb4 02:30 Pain Scale: Adult jj7 05:13 Pain Scale: Adult jj7 Marlo Coma Score: 05:07 Eye Response: spontaneous(4). Motor Response: obeys commands(6). Verbal Response: sp4 oriented(5). Total: 15. MDM: 01:06 Patient medically screened. sp4 05:49 Differential diagnosis: acute pericarditis, anxiety, chest wall pain, Cholelithiasis sp4 esophagitis, gastritis. HEART Score: History: Slightly Suspicious (0), ECG: Normal (0), Age: < or = 45 years (0), Risk Factors: No Risk Factors Known (0), Troponin: < or = 1 x Normal Limit (0), Total Score = 0. Data reviewed: vital signs, nurses notes, lab test result(s), EKG, radiologic studies, CT scan. ED course: CLINICAL HISTORY: ABD PAIN COMPARISON: None. TECHNIQUE: CTABDOMEN PELVIS WITH IV CONTRAST on 11/04/2023 1:11 AM CDT This exam was performed according to our departmental dose-optimization program, which includes automated exposure control, adjustment of the mA and/or kV according to patient size and/or use of iterative reconstruction technique. FINDINGS: Lower lungs are clear. Abdomen: Liver is fatty in attenuation. There is no biliary dilatation. Gallbladder is normal in appearance. The pancreas and spleen are normal in appearance. The adrenal glands and kidneys are unremarkable. Abdominal aorta is normal in course and caliber without aneurysm. There is no free air. There is no retroperitoneal adenopathy. Pelvis: There is no bowel obstruction. Urinary bladder is unremarkable. There is no free fluid. Appendix is normal. Skeleton: There are no acute osseous findings. No suspicious bony lesions. IMPRESSION: No acute process. . 11/03 01:11 Order name: CBC with Diff; Complete Time: 03:46 sp4 11/03 01:11 Order name: CMP; Complete Time: 03:46 sp4 11/03 01:11 Order name: Lipase; Complete Time: 03:46 sp4 11/03 01:11 Order name: Urinalysis w/ reflexes; Complete Time: 03:46 sp4 11/03 01:11 Order name: Influenza Screen (a \T\ B); Complete Time: 03:46 sp4 11/03 01:11 Order name: CT Abd/Pelvis - IV Contrast Only sp4 11/03 01:11 Order name: IV Saline Lock; Complete Time: 01:51 sp4 11/03 01:11 Order name: Labs collected and sent; Complete Time: :51 sp4 EC:07 Rate is 89 beats/min. Rhythm is regular, Normal Sinus Rhythm. QRS [place] is Normal. [place] sp4 interval is normal. QRS interval is normal. QT interval is normal. No Q waves. T waves are Normal. No ST changes noted. Clinical impression: Normal ECG. Interpreted by me. Reviewed by me. Administered Medications: 01:48 Drug: metoCLOPramide IVP 10 mg IVP once; over 1 to 2 minutes Route: IVP; Site: right [facility] antecubital; 03:17 Follow up: Response: Marked relief of symptoms; Nausea is decreased jj7 01:51 Drug: NS 0.9% IV 1000 ml IV at 1 bolus Per protocol; 1000 mL bolus Route: IV; Rate: 1 jj7 bolus; Site: right antecubital; 03:17 Follow up: IV Status: Completed infusion jj7 01:51 Drug: Famotidine IVP 20 mg IVP once; dilute with 10 mL 0.9% NaCl; give over 2 minutes jj7 Route: IVP; Site: right antecubital; 03:17 Follow up: Response: Marked relief of symptoms jj7 01:51 Drug: TORadol - Ketorolac IVP 15 mg IVP once Route: IVP; Site: right antecubital; jj7 03:18 Follow up: Response: Marked relief of symptoms; Pain is decreased jj7 01:51 Drug: Ondansetron IVP 4 mg IVP once; over 2 minutes Route: IVP; Site: right antecubital;jj7 03:17 Follow up: Response: Marked relief of symptoms; Nausea is decreased jj7 01:52 Drug: morphine IVP or IV 4 mg IVP once over 4 mins Route: IVP; Infused Over: 4 mins; jj7 Site: right antecubital; 03:18 Follow up: Response: Marked relief of symptoms; Pain is decreased jj7 03:34 Drug: Acetaminophen PO 1000 mg PO once Route: PO; jj7 05:13 Follow up: Response: Pain is decreased jj7 Disposition Summary: 11/04/23 05:12 Discharge Ordered Notes: Work note for 3 days

Location: Home sp4 Problem: new sp4 Symptoms: have improved sp4 Condition: Stable sp4 Diagnosis - Acute viral gastroenteritis, acute vomiting, cough headache. sp4 Followup: sp4 - With: Private Physician - When: 7 - 10 days - Reason: Recheck today's complaints Followup: sp4 - With: Rene Anthony DO - When: 7 - 10 days - Reason: Recheck today's complaints Discharge Instructions: - Discharge Summary Sheet sp4 - Viral Gastroenteritis, Adult, [id number] sp4 Forms: - Work release form sp4 - Patient Portal Instructions sp4 Prescriptions: - naproxen 500 mg Oral tablet - take 1 tablet ORAL route every 12 hours as needed for pain; 60 tablet; Refills: sp4 0, Product Selection Permitted - ondansetron 8 mg Oral Tablet,disintegrating - take 1 tablet ORAL route every 8 hours PRN nausea; 30 tablet; Refills: 0, sp4 Product Selection Permitted Signatures: Dispatcher [employer] EDOtilia Posadas, RN Leroy Sutherland RN RN jb4 Hasmukh Hays RN RN jj7 Dain King MD MD sp4 Corrections: (The following items were deleted from the chart) 01:11 01:11 Abdomen Pelvis W Con+CT.RAD.BRZ ordered. EDMS EDMS
--- NOTE | 2023-11-04 05:13 | ER ---
Nurse's Notes [facility] Name: Ruben Giraldo Age: 23 yrs Sex: Male : 2000 Arrival Date: 11/04/2023 Time: 00:54 Bed 3 Private MD: Diagnosis: Acute viral gastroenteritis, acute vomiting, cough headache. Presentation: 11/03 01:14 Chief complaint: Patient states: headache nausea vomiting sore throat and chest pain jb4 with vomiting. Coronavirus screen: Vaccine status: Patient reports being unvaccinated. Ebola Screen: Patient negative for fever greater than or equal to 101.5 degrees Fahrenheit, and additional compatible Ebola Virus Disease symptoms. Initial Sepsis Screen: Does the patient meet any 2 criteria? HR > 90 bpm. No. Patient's initial sepsis screen is negative. Does the patient have a suspected source of infection? No. Patient's initial sepsis screen is negative. Risk Assessment: Do you want to hurt yourself or someone else? Patient reports no desire to harm self or others. Onset of symptoms was November 04, 2023. 01:14 Method Of Arrival: Ambulatory jb4 01:14 Acuity: ILA 3 jb4 Triage Assessment: 01:16 General: Appears uncomfortable, Behavior is cooperative. Pain: Complains of pain in jb4 back of head Pain currently is 10 out of 10 on a pain scale. Neuro: Level of Consciousness is awake, alert, obeys commands, Oriented to person, place, time, situation, Speech is normal, Facial symmetry appears normal, Pupils are PERRLA, Reports headache that is the "worst ever". Cardiovascular: Denies lightheadedness, palpitations, shortness of breath. Respiratory: No deficits noted. GI: Pt is actively vomiting bile, Reports nausea, vomiting. Historical: - Allergies: 01:16 No Known Allergies; jb4 - Home Meds: 01:16 None [Active]; jb4 - PMHx: 01:16 Gout; jb4 01:25 GERD; kl - PSHx: 01:16 None; jb4 - Immunization history:: Adult Immunizations not immunized. - Infectious Disease History:: Denies. - Social history:: Smoking status: unknown. - Family history:: not pertinent. Screenin:40 [facility] [place] ED Fall Risk Assessment (Adult) History of falling in the last 3 months, jj7 including since admission No falls in past 3 months (0 pts) Confusion or Disorientation No (0 pts) Intoxicated or Sedated No (0 pts) Impaired Gait No (0 pts) Mobility Assist Device Used No (0 pt) Altered Elimination No (0 pt) Score/Fall Risk Level 0 - 2 = Low Risk Oriented to surroundings, Maintained a safe environment, Educated pt \\T\\ family on fall prevention, incl call for assistance when getting out of bed. Abuse screen: Denies threats or abuse. Nutritional screening: No deficits noted. Tuberculosis screening: No symptoms or risk factors identified. Assessment: 01:40 General: Appears in no apparent distress. uncomfortable, Behavior is calm, cooperative, jj7 appropriate for age. Pain: Complains of pain in head and back of head Pain does not radiate. Pain began 1 day ago. 01:40 Neuro: Reports headache. GI: Reports nausea, vomiting. jj7 03:00 Reassessment: Patient appears in no apparent distress at this time. No changes from [facility] previously documented assessment. Patient and/or family updated on plan of care and expected duration. Pain level reassessed. Patient is alert, oriented x 3, equal unlabored respirations, skin warm/dry/pink. 04:00 Reassessment: Patient appears in no apparent distress at this time. Patient and/or [facility] family updated on plan of care and expected duration. Pain level reassessed. Patient is alert, oriented x 3, equal unlabored respirations, skin warm/dry/pink. Patient states symptoms have improved. 05:00 Reassessment: Patient appears in no apparent distress at this time. No changes from [facility] previously documented assessment. Patient and/or family updated on plan of care and expected duration. Pain level reassessed. Patient is alert, oriented x 3, equal unlabored respirations, skin warm/dry/pink. Vital Signs: 01:14 BP 151 / 76; Pulse 101; Resp 18; Temp 97.3; Pulse Ox 100% on R/A; Weight 124.74 kg (R); jb4 Height 6 ft. 2 in. ; Pain 10/10; 02:30 BP 112 / 59; Pulse 83; Resp 17; Pulse Ox 97% ; Pain 3/10; jj7 03:30 BP 107 / 66; Pulse 68; Resp 16 S; Pulse Ox 99% on R/A; jw7 04:30 BP 105 / 78; Pulse 67; Resp 14 S; Pulse Ox 99% on R/A; jw7 05:13 BP 119 / 61; Pulse 61; Resp 15; Temp 98; Pulse Ox 97% ; Pain 0/10; jj7 01:14 Body Mass Index 35.31 (124.74 kg, 187.96 cm) jb4 01:14 Pain Scale: Adult jb4 02:30 Pain Scale: Adult jj7 05:13 Pain Scale: Adult jj7 [place] Coma Score: 05:07 Eye Response: spontaneous(4). Motor Response: obeys commands(6). Verbal Response: sp4 oriented(5). Total: 15. ED Course: 00:56 Patient arrived in ED. im 01:01 Dain King MD is Attending Physician. sp4 01:10 O2 via RA. jw7 01:10 Arm band placed on. jw7 01:16 Triage completed. jb4 01:40 Patient has correct armband on for positive identification. Bed in low position. Call jj7 light in reach. Side rails up X 1. Provided Education on: USE OF CALL GRACE. Client placed on continuous cardiac and pulse oximetry monitoring. NIBP monitoring applied. quality assurance monitor on. Warm blanket given. 01:45 Initial lab(s) drawn, by me, sent to lab. Flu and/or RSV swab sent to lab. Inserted jj7 saline lock: 20 gauge in right antecubital area, using aseptic technique. Blood collected. 01:48 Influenza Screen (a \\T\\ B) Sent. jj7 01:51 CBC with Diff Sent. jj7 01:51 CMP Sent. jj7 01:51 Lipase Sent. jj7 02:29 CT Abd/Pelvis - IV Contrast Only In Process Unspecified. EDMS 02:53 Urinalysis w/ reflexes Sent. vk 05:03 No provider procedures requiring assistance completed. jw7 05:11 Rene Anthony DO is Referral Physician. sp4 05:14 IV discontinued, intact, bleeding controlled, No redness/swelling at site. Pressure jj7 dressing applied. Administered Medications: 01:48 Drug: metoCLOPramide IVP 10 mg IVP once; over 1 to 2 minutes Route: IVP; Site: right jj7 antecubital; 03:17 Follow up: Response: Marked relief of symptoms; Nausea is decreased jj7 01:51 Drug: NS 0.9% IV 1000 ml IV at 1 bolus Per protocol; 1000 mL bolus Route: IV; Rate: 1 jj7 bolus; Site: right antecubital; 03:17 Follow up: IV Status: Completed infusion jj7 01:51 Drug: Famotidine IVP 20 mg IVP once; dilute with 10 mL 0.9% NaCl; give over 2 minutes jj7 Route: IVP; Site: right antecubital; 03:17 Follow up: Response: Marked relief of symptoms jj7 01:51 Drug: TORadol - Ketorolac IVP 15 mg IVP once Route: IVP; Site: right antecubital; jj7 03:18 Follow up: Response: Marked relief of symptoms; Pain is decreased j7 01:51 Drug: Ondansetron IVP 4 mg IVP once; over 2 minutes Route: IVP; Site: right antecubital;jj7 03:17 Follow up: Response: Marked relief of symptoms; Nausea is decreased jj7 01:52 Drug: morphine IVP or IV 4 mg IVP once over 4 mins Route: IVP; Infused Over: 4 mins; jj7 Site: right antecubital; 03:18 Follow up: Response: Marked relief of symptoms; Pain is decreased jj7 03:34 Drug: Acetaminophen PO 1000 mg PO once Route: PO; jj7 05:13 Follow up: Response: Pain is decreased jj7 Medication: 01:40 VIS not applicable for this client. jj7 Outcome: 05:12 Discharge ordered by MD. priest 05:14 Discharged to home ambulatory, jj7 05:14 Condition: improved 05:14 Discharge instructions given to patient, Instructed on discharge instructions, follow up and referral plans. medication usage, Demonstrated understanding of instructions, follow-up care, medications, Prescriptions given X 2, 05:18 Patient left the ED. jj7 Signatures: Dispatcher [employer] EDMS Otilia Lopez RN RN kl Bryson, James RN RN jb4 Tania Hannah RN RN jw7 Johnson, Juwairiyah, RN RN jj7 Dain King MD MD sp4 Mendoza, Itzel im Kruse, Vivian vk Corrections: (The following items were deleted from the chart) 01:56 01:40 Pain: Complains of pain in head and back of head Pain does not radiate. Pain jj7 began 1 day ago. jj7
[2023-11-04 05:30] VITALS: BP 119/61; TEMP 98; O2SAT 97
--- NOTE | 2023-11-04 12:28 | RAD REPORT ---
EXAM DESCRIPTION: CT - Abdomen Pelvis W Contrast - 11/04/2023 6:12 am CLINICAL HISTORY: ABD PAIN COMPARISON: None. TECHNIQUE: CT ABDOMEN PELVIS WITH IV CONTRAST on 11/04/2023 1:11 AM CDT This exam was performed according to our departmental dose-optimization program, which includes autom ated exposure control, adjustment of the mA and/or kV according to patient size and/or use of iterati ve reconstruction technique. FINDINGS: Lower lungs are clear. Abdomen: Liver is fatty in attenuation. There is no biliary dilatation. Gallbladder is normal in appe arance. The pancreas and spleen are normal in appearance. The adrenal glands and kidneys are unremark able. Abdominal aorta is normal in course and caliber without aneurysm. There is no free air. There is no r etroperitoneal adenopathy. Pelvis: There is no bowel obstruction. Urinary bladder is unremarkable. There is no free fluid. Appen courtney is normal. Skeleton: There are no acute osseous findings. No suspicious bony lesions. IMPRESSION: No acute process. Electronically signed by: Fredo Rubio MD 11/04/2023 04:10 AM CDT RP Due to temporary technical issues with the PACS/Fluency reporting system, reports are being signed by the in house radiologist without review as a courtesy to ensure prompt reporting. The interpreting r adiologist is fully responsible for the content of the report.
--- NOTE | 2023-11-05 16:55 | EKG ---
Test Date: 2023-11-04 Test Time: 01:53:14 Produce Department Supervisor: GRIS MEASUREMENT RESULTS: Intervals: Rate: 89 NC: 144 QRSD: 88 QT: 360 QTc: 438 [place]: P: 61 NC: 144 QRS: 45 T: 4 INTERPRETIVE STATEMENTS: Normal sinus rhythm Cannot rule out Inferior infarct, age undetermined Abnormal ECG No previous ECG available for comparison Electronically Signed On 11-05-23 16:49:39 CDT by Clyde Arango
== END 2023-11-04 05:18 | disposition home or self-care (01) ==
LOC: ER 00:54
DX: A08.4 Viral intestinal infection, unspecified (principal); R51.9 Headache, unspecified; R05.9 Cough, unspecified
CPT/HCPCS: 36415; 74177; 80053; 81003; 83690; 85025; 87804; 93005; 96361; 96374; 96375; 99285; J2405; J2765; J7030; Q9967

== ENCOUNTER 2023-12-27 20:49 | Emergency (ER) | payer OTHER, SELFPAY ==
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
[2023-12-27] MEDS ORDERED: NA CHLORIDE 0.9% 1,000 ML ONE (23:18)
[2023-12-27] MEDS ORDERED: KETOROLAC 30 MG/ML INJ ONE (23:18)
[2023-12-27] MEDS ORDERED: METOCLOPRAMIDE 10 MG/2mL INJ ONE (23:18)
[2023-12-27] MEDS ORDERED: dexAMETHasone 10 MG/ML VIAL ONE (23:18)
[2023-12-27 23:51] LABS: Albumin 3.7 g/dL (3.4-5.0); Albumin/Globulin Ratio 0.9 (1.1-1.8); Anion Gap 7.5 mEq/L (5.0-15.0); Bilirubin Total 0.9 mg/dL (0.2-1.0); Globulin 4.3 g/dL (2.3-3.5); Potassium 3.5 mEq/L (3.5-5.1); Uric Acid 10.9 mg/dL (3.5-7.2)
[2023-12-27 23:59] LABS: Absolute Basophils 0.1 K/uL (0-0.5); Absolute Eosinophils 0.3 K/uL (0-0.5); Absolute Monocytes 1.1 K/uL (0.1-1.3); Absolute Neutrophil 6.3 K/uL (1.8-8.0); Basophils % 0.6 % (0-1.3); Eosinophils % 3.2 % (0-4.4); Lymphocytes % 27.7 % (15.3-44.8); MCH 26.9 pg (27.0-35.0); MCHC 32.5 g/dL (32.0-36.0); MCV 82.7 fL (80-100); MPV 10.6 fL (7.6-11.3); Monocytes % 10.5 % (3.3-12.3); Platelets 276 thou/uL (152-406); Red Cell Distribution Width 13.9 % (12.1-15.2)
--- NOTE | 2023-12-28 01:55 | ER ---
Nurse's Notes [facility] Name: Ruben Giraldo Age: 23 yrs Sex: Male : 2000 Arrival Date: 12/27/2023 Time: 20:49 Bed 13 Private MD: Diagnosis: Gout, unspecified;Pain in right ankle and joints of right foot;Headache Presentation: 12/26 22:06 Chief complaint: Patient states: c/o R ankle pain and headache starting today at 1500. al5 denies any injury. Coronavirus screen: At this time, the client does not indicate any symptoms associated with coronavirus-19. Ebola Screen: No symptoms or risks identified at this time. Initial Sepsis Screen: Does the patient meet any 2 criteria? No. Patient's initial sepsis screen is negative. Does the patient have a suspected source of infection? No. Patient's initial sepsis screen is negative. Risk Assessment: Do you want to hurt yourself or someone else? Patient reports no desire to harm self or others. Onset of symptoms was December 27, 2023 at 15:00. 22:06 Method Of Arrival: Ambulatory al5 22:06 Acuity: ILA 3 al5 Triage Assessment: 22:07 Headache History: Denies prior headaches. General: Appears in no apparent distress. al5 Behavior is calm, cooperative. Pain: Pain currently is 8 out of 10 on a pain scale. Pain began 7 hours ago Also complains of headache, R ankle pain. EENT: No signs and/or symptoms were reported regarding the EENT system. Neuro: Level of Consciousness is awake, alert, obeys commands, Oriented to person, place, time, situation. Cardiovascular: Patient's skin is warm and dry. Respiratory: Airway is patent Respiratory effort is even, unlabored, Respiratory pattern is regular, symmetrical. GI: No signs and/or symptoms were reported involving the gastrointestinal system. : No signs and/or symptoms were reported regarding the genitourinary system. Derm: Skin is intact, Skin is pink, warm \T\ dry. normal. Musculoskeletal: No signs and/or symptoms reported regarding the musculoskeletal system. Historical: - Allergies: 22:07 No Known Allergies; al5 - PMHx: 22:07 GERD; Gout; al5 - PSHx: 22:07 None; al5 - Immunization history:: Adult Immunizations up to date. - Infectious Disease History:: Denies. - Social history:: Smoking status: Patient denies any tobacco usage or history of. Screenin:40 [facility] ED Fall Risk Assessment (Adult) History of falling in the last 3 months, tm6 including since admission No falls in past 3 months (0 pts) Confusion or Disorientation No (0 pts) Intoxicated or Sedated No (0 pts) Impaired Gait No (0 pts) Mobility Assist Device Used No (0 pt) Altered Elimination No (0 pt) Score/Fall Risk Level 0 - 2 = Low Risk Oriented to surroundings, Maintained a safe environment, Educated pt \T\ family on fall prevention, incl call for assistance when getting out of bed. Abuse screen: Denies threats or abuse. Denies injuries from another. Nutritional screening: No deficits noted. Tuberculosis screening: No symptoms or risk factors identified. Assessment: 23:40 General: Appears in no apparent distress. Behavior is calm, cooperative. Pain: tm6 Complains of pain in right ankle Pain does not radiate. Pain currently is 5 out of 10 on a pain scale. Quality of pain is described as aching, tender, Pain began this AM. Neuro: Level of Consciousness is awake, alert, obeys commands, Oriented to person, place, time, situation. Cardiovascular: No deficits noted. Patient's skin is warm and dry. Rhythm is sinus rhythm. Respiratory: No deficits noted. Airway is patent Respiratory effort is even, unlabored. GI: No signs and/or symptoms were reported involving the gastrointestinal system. Abdomen is round non-distended. : No signs and/or symptoms were reported regarding the genitourinary system. EENT: No signs and/or symptoms were reported regarding the EENT system. Derm: No signs and/or symptoms reported regarding the dermatologic system. Musculoskeletal: Reports pain in right ankle since this AM. 12/27 00:51 Reassessment: Patient appears in no apparent distress at this time. Patient is alert, tm6 oriented x 3, equal unlabored respirations, skin warm/dry/pink. 02:10 Reassessment: Patient appears in no apparent distress at this time. Patient and/or tm6 family updated on plan of care and expected duration. Pain level reassessed. Patient is alert, oriented x 3, equal unlabored respirations, skin warm/dry/pink. Vital Signs: 12/26 22:06 BP 156 / 86; Pulse 90; Resp 18; Temp 98; Pulse Ox 99% ; Weight 127.01 kg; Height 6 ft. al5 2 in. ; Pain 8/10; 23:44 BP 146 / 73; Pulse 87; Resp 15; Pulse Ox 100% on R/A; Pain 4/10; tm6 12/27 00:51 BP 109 / 55; Pulse 80; Pulse Ox 98% on R/A; tm6 02:11 BP 112 / 58; Pulse 76; Resp 19; Temp 98; Pain 0/10; tm6 12/26 22:06 Body Mass Index 35.95 (127.01 kg, 187.96 cm) al5 12/26 22:06 Pain Scale: Adult al5 23:44 Pain Scale: Adult tm6 02:11 Pain Scale: Adult tm6 ED Course: 12/26 20:50 Patient arrived in ED. jj6 20:52 Marko Ramires PA is PHCP. cp 20:52 Dain King MD is Attending Physician. cp 22:07 Triage completed. al5 22:08 Arm band placed on left wrist. Patient placed in an exam room, on a stretcher. al5 22:59 XRAY Ankle RIGHT 3 view In Process Unspecified. EDMS 23:07 Val Grey, RN is Primary Nurse. tm6 23:24 CBC with Diff Sent. tm6 23:24 CMP Sent. tm6 23:25 Lipase Sent. tm6 23:25 Inserted saline lock: 20 gauge in right antecubital area, using aseptic technique. tm6 Blood collected. Flushed with 10 mL NS. 23:40 Patient has correct armband on for positive identification. Bed in low position. Call tm6 light in reach. Side rails up X 1. Provided Education on: use of call bar. Client placed on continuous cardiac and pulse oximetry monitoring. NIBP monitoring applied. Pulse ox on. NIBP on. Door closed. Noise minimized. Warm blanket given. 23:40 EKG done, by ED staff, reviewed by Marko JOHNSTON. tm6 12/27 02:11 No provider procedures requiring assistance completed. IV discontinued, intact, tm6 bleeding controlled, No redness/swelling at site. Pressure dressing applied. Administered Medications: 12/26 23:25 Drug: NS 0.9% IV 1000 ml IV at 1 bolus Per protocol; 1000 mL bolus Route: IV; Rate: 1 tm6 bolus; Site: right antecubital; 12/27 02:10 Follow up: IV Status: Completed infusion; IV Intake: 1000ml tm6 12/26 23:25 Drug: TORadol - Ketorolac IVP 15 mg IVP once Route: IVP; Site: right antecubital; tm6 23:25 Drug: metoCLOPramide IVP 10 mg IVP once; over 1 to 2 minutes Route: IVP; Site: right tm6 antecubital; 23:25 Drug: Dexamethasone IVP 10 mg IVP once; (not to exceed 40 mg) Route: IVP; Site: right tm6 antecubital; Medication: 23:40 VIS not applicable for this client. tm6 Intake: 12/27 02:10 IV: 1000ml; Total: 1000ml. tm6 Outcome: 01:55 Discharge ordered by MD. cp 02:11 Discharged to home ambulatory, tm6 02:11 Condition: stable 02:11 Discharge instructions given to patient, Instructed on discharge instructions, follow up and referral plans. medication usage, Demonstrated understanding of instructions, follow-up care, medications, Prescriptions given X 1, 02:11 Patient left the ED. tm6 Signatures: Dispatcher [employer] EDMS Marko Ramires PA PA cp Jeffries, Jennifer jj6 Val Grey RN RN tm6 Manda Arzate RN RN al5
--- NOTE | 2023-12-28 01:55 | EDPHYS ---
Physician Documentation [facility] Name: Ruben Giraldo Age: 23 yrs Sex: Male : 2000 Arrival Date: 12/27/2023 Time: 20:49 Bed 13 Private MD: ED Physician Dain King HPI: 12/26 22:15 This 23 yrs old Male presents to ER via Ambulatory with complaints of Foot cp Pain, ANKLE PAIN, Headache, Leg Swelling. 22:15 The patient presents with pain, that is acute. The complaints affect the right ankle, cp anterior aspect of right ankle and dorsum of right foot. Context: resulted from an unknown cause, the patient can partially bear weight, the patient is able to ambulate, with moderate difficulty, Problem is a result from a previous injury: No. Onset: The symptoms/episode began/occurred gradually, and became worse today. Modifying factors: the symptoms are aggravated by movement, weight bearing. Associated signs and symptoms: Pertinent positives: headache. Patient reports HX of gout that usually affects right big toe. Historical: - Allergies: 22:07 No Known Allergies; al5 - PMHx: 22:07 GERD; Gout; al5 - PSHx: 22:07 None; al5 - Immunization history:: Adult Immunizations up to date. - Infectious Disease History:: Denies. - Social history:: Smoking status: Patient denies any tobacco usage or history of. ROS: 22:20 Constitutional: Negative for body aches, chills, fever, poor PO intake, cp 22:20 Eyes: Negative for injury, pain, redness, and discharge, cp 22:20 Cardiovascular: Negative for chest pain, edema, palpitations, 22:20 Respiratory: Negative for cough, shortness of breath, wheezing, 22:20 Abdomen/GI: Negative for abdominal pain, vomiting, diarrhea, constipation, 22:20 Back: Negative for pain at rest, pain with movement, 22:20 MS/extremity: Positive for pain, of the dorsum of right foot and anterior aspect of right ankle and right ankle, Negative for injury or acute deformity, deformity, 22:20 Neuro: Positive for headache, Negative for altered mental status, dizziness, weakness, 22:20 All other systems are negative, Exam: 22:25 Constitutional: The patient appears in no acute distress, alert, awake, non-toxic, well cp developed, well nourished, uncomfortable, 22:25 Head/Face: Normocephalic, atraumatic. cp 22:25 Eyes: Periorbital structures: appear normal, Conjunctiva: normal, no exudate, no injection, Sclera: no appreciated abnormality, Lids and lashes: appear normal, bilaterally, 22:25 ENT: External ear(s): are unremarkable, Nose: is normal, Mouth: Lips: moist, Oral mucosa: pink and intact, moist, Posterior pharynx: Airway: no evidence of obstruction, patent, 22:25 Chest/axilla: Inspection: normal, 22:25 Cardiovascular: Rate: normal, Rhythm: regular, Pulses: Pulses are 2+ in right dorsalis pedis artery. Edema: is not appreciated, 22:25 Respiratory: the patient does not display signs of respiratory distress, Respirations: normal, no use of accessory muscles, no retractions, labored breathing, is not present, Breath sounds: are clear throughout, no decreased breath sounds, no stridor, no wheezing, 22:25 Abdomen/GI: Exam negative for discomfort, distension, guarding, Inspection: abdomen appears normal, 22:25 Back: pain, is absent, ROM is normal, 22:25 Musculoskeletal/extremity: Extremities: noted in the right ankle and dorsum of right foot and anterior aspect of right ankle: pain, swelling, tenderness, Pulses: noted to be 2+ in the right dorsalis pedis artery, the right foot Sensation intact. 22:25 Skin: cellulitis, is not appreciated, no rash present. 22:25 Neuro: Orientation: to person, place \T\ time. Mentation: is normal, Motor: moves all fours, strength is normal, Sensation: no obvious gross deficits, 23:37 ECG was reviewed by the Attending Physician. cp Vital Signs: 22:06 BP 156 / 86; Pulse 90; Resp 18; Temp 98; Pulse Ox 99% ; Weight 127.01 kg; Height 6 ft. al5 2 in. ; Pain 8/10; 23:44 BP 146 / 73; Pulse 87; Resp 15; Pulse Ox 100% on R/A; Pain 4/10; tm6 07 00:51 BP 109 / 55; Pulse 80; Pulse Ox 98% on R/A; tm6 02:11 BP 112 / 58; Pulse 76; Resp 19; Temp 98; Pain 0/10; tm6 12/26 22:06 Body Mass Index 35.95 (127.01 kg, 187.96 cm) al5 12/26 22:06 Pain Scale: Adult al5 23:44 Pain Scale: Adult tm6 02:11 Pain Scale: Adult tm6 MDM: 12/26 22:11 Patient medically screened. 23:00 Differential diagnosis: closed fracture, contusion, tendonitis, sprain, gout, cp cellulitis. 12/27 01:55 Data reviewed: vital signs, nurses notes, lab test result(s), radiologic studies, plain cp films, and as a result, I will discharge patient. 01:55 I considered the following discharge prescriptions or medication management in the emergency department Medications were administered in the Emergency Department. See MAR. Independent interpretation of the following test(s) in the Emergency Department EKG: See my EKG interpretation above. Counseling: I had a detailed discussion with the patient and/or guardian regarding the historical points, exam findings, and any diagnostic results supporting the discharge/admit diagnosis, lab results, radiology results, the need for outpatient follow up, a family practitioner. Response to treatment: the patient's symptoms have mildly improved after treatment, and as a result, I will discharge patient. 12/26 22:11 Order name: CBC with Diff; Complete Time: 01:50 12/27 01:50 Interpretation: Normal except: MCH 26.9. 12/26 22:11 Order name: CMP; Complete Time: 01:50 12/27 01:50 Interpretation: Normal except: GFR 82; ALT 99; GLOB 4.3; A/G 0.9. 12/26 22:11 Order name: Lipase; Complete Time: 01:50 12/27 01:50 Interpretation: Reviewed. 12/26 22:11 Order name: Uric Acid; Complete Time: 01:50 12/27 01:50 Interpretation: Reviewed. 12/26 22:11 Order name: XRAY Ankle RIGHT 3 view cp 12/26 22:11 Order name: EKG; Complete Time: 22:11 12/26 22:11 Order name: IV Saline Lock; Complete Time: 23:24 12/26 22:11 Order name: Labs collected and sent; Complete Time: 23:24 12/26 22:11 Order name: EKG - Nurse/Tech; Complete Time: 23:40 cp EC/22 23:37 Rate is 77 beats/min. Rhythm is regular. MA interval is normal. QRS interval is normal. cp QT interval is normal. T waves are Inverted in leads III, aVR, V5, V6. Interpreted by me. Reviewed by me. Administered Medications: 23:25 Drug: NS 0.9% IV 1000 ml IV at 1 bolus Per protocol; 1000 mL bolus Route: IV; Rate: 1 tm6 bolus; Site: right antecubital; 12/27 02:10 Follow up: IV Status: Completed infusion; IV Intake: 1000ml tm6 12/26 23:25 Drug: TORadol - Ketorolac IVP 15 mg IVP once Route: IVP; Site: right antecubital; tm6 23:25 Drug: metoCLOPramide IVP 10 mg IVP once; over 1 to 2 minutes Route: IVP; Site: right tm6 antecubital; 23:25 Drug: Dexamethasone IVP 10 mg IVP once; (not to exceed 40 mg) Route: IVP; Site: right tm6 antecubital; Disposition: 12/27 04:36 Co-signature as Attending Physician, Dain King MD I agree with the assessment sp4 and plan of care. I reviewed the patient's care provided by the Advanced Practice Provider and agree with the diagnosis and treatment plan. Disposition Summary: 12/28/23 01:55 Discharge Ordered Notes: Location: Home cp Problem: new cp Symptoms: have improved cp Condition: Stable cp Diagnosis - Gout, unspecified cp - Pain in right ankle and joints of right foot cp - Headache cp Followup: cp - With: Private Physician - When: 2 - 3 days - Reason: Worsening of condition Discharge Instructions: - Discharge Summary Sheet cp - Joint Pain cp - Gout cp - General Headache Without Cause cp Forms: - Medication Reconciliation Form cp - Antibiotic Education cp - Prescription Opioid Use cp - Patient Portal Instructions cp - Leadership Thank You Letter cp - Work release form tm6 Prescriptions: - Diclofenac Sodium 75 mg Oral Tablet Sustained Release - take 1 tablet ORAL route 2 times per day; 30 tablet; Refills: 0, Product cp Selection Permitted Signatures: Dispatcher [employer] EDAR Marko Ramires PA PA cp Potepalov, Sergey, MD MD sp4 Val Grey RN RN tm6 Manda Arzate RN RN al5 Corrections: (The following items were deleted from the chart) 01:50 01:50 Normal except: GFR 82. cp cp 12/28 00:31 12/27 04:36 This 23 yrs old Male presents to ER via Ambulatory with complaints cp of Foot Pain, ANKLE PAIN, Headache, Leg Swelling. sp4
--- NOTE | 2023-12-28 13:06 | EKG ---
Test Date: 2023-12-27 Test Time: 23:32:58 Family Services Manager: ARLENE MEASUREMENT RESULTS: Intervals: Rate: 77 LA: 148 QRSD: 92 QT: 384 QTc: 434 Hillman: P: 50 LA: 148 QRS: 34 T: -9 INTERPRETIVE STATEMENTS: Normal sinus rhythm with sinus arrhythmia Normal ECG Compared to ECG 11/04/2023 01:53:14 Myocardial infarct finding no longer present Electronically Signed On 12-28-23 13:05:49 CDT by Clyde Arango
--- NOTE | 2023-12-28 17:50 | RAD REPORT ---
EXAM DESCRIPTION: RAD - Ankle Right 3 View - 12/27/2023 10:57 pm CLINICAL HISTORY: Pain TECHNIQUE: Right ankle 3 views. COMPARISON: None FINDINGS: There is no fracture or dislocation. The soft tissues are unremarkable. IMPRESSION: 1. Normal study. Electronically signed by: Giacomo Dukes MD 12/27/2023 11:17 PM CDT RP Due to temporary technical issues with the PACS/Fluency reporting system, reports are being signed by the in house radiologists without review as a courtesy to insure prompt reporting. The interpreting radiologist is fully responsible for the content of the report.
[2023-12-30 16:14] VITALS: BP 112/58; TEMP 98; O2SAT 98
== END 2023-12-28 02:11 | disposition home or self-care (01) ==
LOC: ER 20:49
DX: M10.9 Gout, unspecified (principal); M25.571 Pain in right ankle and joints of right foot; R51.9 Headache, unspecified
CPT/HCPCS: 36415; 80053; 83690; 84550; 85025; 93005; 96361; 96374; 96375; 99284; J1100; J2765; J7030